=== PATIENT | female | born 1980 | race Caucasian/White ===

== ENCOUNTER 2021-05-09 08:48 | Outpatient (CLI) | payer MEDICAID, SELFPAY ==
[2021-05-10 13:27] LABS: Giardia Lamblia, Stool EIA Negative (Negative)
[2021-05-11 18:42] LABS: Calprotectin, Stool <16 ug/g (0-120)
== END 2021-05-09 23:59 | disposition home or self-care (01) ==
LOC: LABSPEC 08:49
PROVIDERS: Referring Provider Nurse Practitioner Adult Health; Visit Provider Nurse Practitioner Adult Health
DX: R19.7 Diarrhea, unspecified (principal)
CPT/HCPCS: 83630; 83993; 87177; 87209; 87329; 87493; 87506